=== PATIENT | female | born 1995 | race African-American/Black ===

== ENCOUNTER 2017-02-24 13:33 | Emergency (ER) | payer SELFPAY ==
[~2017-02-24] VITALS: Ht 165.1 cm; Wt 61.0 kg
[2017-02-24 15:31] VITALS: BP 93/63
== END 2017-02-24 19:31 | disposition left against medical advice (07) ==
LOC: ER 15:31
DX: N39.9 Disorder of urinary system, unspecified (principal); Z53.21 Procedure and treatment not carried out due to patient leaving prior to being seen by health care provider

== ENCOUNTER 2017-07-20 09:58 | Emergency (ER) | payer SELFPAY | END 2017-07-20 14:11 | disposition left against medical advice (07) | LOC: ER 11:44 | DX: Z53.21 Procedure and treatment not carried out due to patient leaving prior to being seen by health care provider (principal) ==

== ENCOUNTER 2017-07-20 14:57 | Emergency (ER) | payer MEDICAID ==
[~2017-07-20] VITALS: Ht 165.1 cm; Wt 59.0 kg
[2017-07-20] MEDS ORDERED: PENICILLIN G BENZATHINE 1,200,000 UNITS/2ML SYR IM ONE (18:45)
[2017-07-20] MEDS ORDERED: KETOROLAC 60MG/2ML VIAL IM ONE (18:45)
[2017-07-20 19:07] VITALS: BP 117/87
== END 2017-07-20 19:25 | disposition home or self-care (01) ==
LOC: ER 14:57
DX: K04.7 Periapical abscess without sinus (principal); F12.10 Cannabis abuse, uncomplicated
CPT/HCPCS: 81025; 96372; 99284; J0561; J1885

== ENCOUNTER 2023-06-27 12:39 | Emergency (ER) | payer MEDICAID ==
[~2023-06-27] VITALS: Ht 165.1 cm; Wt 83.0 kg
[2023-06-27 13:34] VITALS: O2SAT 100
[2023-06-27] MEDS ORDERED: DEXAMETHASONE 4MG/ML 1ML VIAL IM ONE (15:00)
[2023-06-27] MEDS ORDERED: AMOX1TAB16 MT (16:00)
[2023-06-27] MEDS ORDERED: ACET-2708 MT (16:02)
[2023-06-27 16:30] VITALS: BP 135/81; PULSE 82; RESP 18; TEMP 100.3
== END 2023-06-27 16:34 | disposition home or self-care (01) ==
LOC: ER 12:51
DX: J02.9 Acute pharyngitis, unspecified (principal); F12.10 Cannabis abuse, uncomplicated
CPT/HCPCS: 99283; 87430; 87070; 87077; 96372; J1100